=== PATIENT | female | born 1975 | race Caucasian/White ===

== ENCOUNTER 2017-07-21 15:20 | Emergency (ER) | payer BC ==
[2017-07-21 15:33] VITALS: BP 121/85
--- NOTE | 2017-07-21 16:34 | UC ---
Skin Complaint HPI - HPI Summary HPI Summary: PT HAS FELT "PUFFY" FOR THE PAST 4 DAYS. FEELS IT IN HER FACE, HANDS, LEGS AND FEET. HAS BEEN EXTREMELY STRESSED RECENTLY. HAS AN INTERMITTENT HACKETT AND YESTERDAY NOTICED AN ITCHY RASH ON HER RIGHT FOREARM. REPORTS SHE HAS HER THYROID TESTED REGULARLY AND AT THE MOST RECENT CHECK IT WAS NORMAL. IS NOT CONCERNED ABOUT THYROID. HAS BEEN OUT HIKING. 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 Negative: Nausea, Vomiting, Difficulty Breathing, Fever, Chills, Cough, Wheezing, Chest Pain, Syncope, Drainage, Bruising, Tenderness, Red Streaks - Allergy/Home Medications Allergies/Adverse Reactions: Allergies Allergy/AdvReac Type Severity Reaction Status Date / Time Penicillins Allergy Rash Verified 07/21/17 15:33 Home Medications: Home Medications Compounded Thyroid 1 tab PO DAILY 07/21/17 [History Confirmed 07/21/17] Progesterone (Bulk) [Progesterone Concentrate] 1 dose TOPICAL DAILY 07/21/17 [ History Confirmed 07/21/17] Review of Systems Constitutional: Negative Skin: Rash Respiratory: Negative Cardiovascular: Negative Gastrointestinal: Negative Musculoskeletal: Edema Neurological: Headache All Other Systems Reviewed And Are Negative: Yes PMH/Surg Hx/FS Hx/Imm Hx Endocrine History: Thyroid Disease - [place] - Surgical History Surgical History: Yes Surgery Procedure, Year, and Place: . APPY - Family History Known Family History: Positive: Hypertension, Diabetes Family History: [place] - Social History Alcohol Use: None Substance Use Type: None Smoking Status (MU): Never Smoked Tobacco Physical Exam Triage Information Reviewed: Yes Appearance: Well-Appearing, No Pain Distress, Well-Nourished Vital Signs: Initial Vital Signs Temp 98.2 F 07/21/17 15:27 Pulse 84 07/21/17 15:27 Resp 12 07/21/17 15:27 BP 121/85 07/21/17 15:27 Pulse Ox 100 07/21/17 15:27 Vital Signs Reviewed: Yes Eyes: Positive: Conjunctiva Clear ENT: Positive: Hearing grossly normal, Pharynx normal Neck: Positive: Supple, Nontender, No Lymphadenopathy Respiratory Exam: Normal Cardiovascular Exam: Normal Abdomen Description: Positive: Nontender, Soft. Negative: CVA Tenderness (R), CVA Tenderness (L), Distended, Guarding Bowel Sounds: Positive: Present Musculoskeletal: Positive: ROM Intact, No Edema - NO APPARENT SWELLING/EDEMA ON EXAM Neurological: Positive: Alert Psychological: Positive: Normal Response To Family, Age Appropriate Behavior Skin: Positive: rashes - PAPULAR RASH RIGHT FOREARM. NO EXCORIATION. NO VESICLES Course/Dx - Course Course Of Treatment: PT DOES NOT HAVE ANY APPARENT EDEMA OF FACE, HANDS, LEGS OR FEET ON EXAM. NO CALF TENDERNESS. NEG HOMANS. NORMAL EXAM. OFFERED TO CHECK CBC AND CMP. PT DECLINES THYROID CHECK STATING THIS IS REGULARLY MONITORED AND NORMAL. ADVISED PCP F/U. TO ER IF SX WORSEN. - Diagnoses Provider Diagnoses: 1. SUBJECTIVE EDEMA. 2. CONTACT DERMATITIS - RIGHT FOREARM Discharge - Discharge Plan Condition: Stable Disposition: HOME Prescriptions: Triamcinolone 0.1% CREAM(NF) [Kenalog Cream 0.1%(NF)] 1 applic TOPICAL TID PRN # 1 tube PRN Reason: Itching Patient Education Materials: Edema (ED), Contact Dermatitis (ED) Referrals: Non Staff,Doctor [Medical Doctor] - Ginger Swartz PA [Physician Coconut Cooker] - Additional Instructions: LOW SUSPICION FOR ANY IMMEDIATELY DANGEROUS CONDITION BASED ON PRESENTATION TODAY. WILL CHECK BLOOD COUNT AND METABOLIC PANEL. FOLLOW-UP WITH YOUR PCP FOR FURTHER EVALUATION. CONSIDER RHEUMATOLOGY/AUTOIMMUNE WORK-UP. GO TO THE ER WITHOUT FAIL IF YOU DEVELOP CALF TENDERNESS, FEVER, SHORTNESS OF BREATH, CHEST PAIN, WORSENING SWELLING OR ANY OTHER CONCERNING SYMPTOMS.
[2017-07-22 14:30] LABS: Hematocrit 43 % (35-47); Hemoglobin 14.7 g/dl (12.0-16.0); Mean Corpuscular HGB Conc 35 g/dl (31-36); Mean Corpuscular Hemoglobin 31 pg (27-31); Mean Corpuscular Volume 90 fL (80-97); Mean Platelet Volume 8 um3 (7.4-10.4); Red Blood Count 4.72 10^6/ul (4.0-5.4); Red Cell Distribution Width 12 % (10.5-15); White Blood Count 13.4 10^3/ul (3.5-10.8)
[2017-07-22 14:31] LABS: Add Diff/Slide Review? Slide Review Added; Comments Flag Yes
[2017-07-22 14:40] LABS: Albumin 4.6 g/dL (3.2-5.2); BUN/Creatinine Ratio 14.7 (8-20); EGFR Non-African American 84.7 (>60); Globulin 2.3 g/dL (2-4); Total Bilirubin 0.7 mg/dL (0.2-1.0); Total Protein 6.9 g/dL (6.4-8.9)
--- NOTE | 2017-07-22 19:02 | UC ---
Progress - Progress Note Progress Note: CALL PATIENT CBC/CMP NO ACUTE CHNAGES.
== END 2017-07-21 16:29 | disposition home or self-care (01) ==
LOC: UCEAST 15:20
DX: R60.0 Localized edema (principal); L25.9 Unspecified contact dermatitis, unspecified cause; Z88.0 Allergy status to penicillin; E06.3 Autoimmune thyroiditis
CPT/HCPCS: 36415; 80053; 85025; 99212; G0463